=== PATIENT | female | born 1955 | race Caucasian/White ===

== ENCOUNTER 2018-12-25 08:49 | Emergency (ER) | payer MEDICARE, OTHER ==
[~2018-12-25] VITALS: Ht 152.4 cm; Wt 54.4 kg
[2018-12-25] MEDS ORDERED: fentaNYL PF VIAL 100 MCG/2 ML VIAL IV ONE (09:45)
--- NOTE | 2018-12-25 09:48 | PHYS DOC ---
Past Medical History Past Medical History: High Cholesterol, Hypertension, Hypothyroid Past Surgical History: Cholecystectomy, Hysterectomy Alcohol Use: None Drug Use: None Adult General Chief Complaint Chief Complaint: MECHANICAL FALL HPI HPI Patient is a 63 year old F who presents for fall down 3 steps. She says she hit the back of her head but did not lose consciousness. She has pain her back and right hip. Denies blood thinners. She has pmh of high cholesterol, high bp, and hypothyroid. Review of Systems Review of Systems Constitutional: Denies fever or chills Eyes: Denies change in visual acuity, redness, or eye pain HENT: Denies nasal congestion or sore throat Respiratory: Denies cough or shortness of breath Cardiovascular: No additional information not addressed in HPI GI: Denies abdominal pain, nausea, vomiting, bloody stools or diarrhea : Denies dysuria or hematuria Musculoskeletal: Denies back pain or joint pain Integument: Denies rash or skin lesions Neurologic: Denies headache, focal weakness or sensory changes All other systems were reviewed and found to be within normal limits, except as documented in this note. Current Medications Current Medications Current Medications Medications (Trade) Dose Ordered Sig/Dash Start Time Stop Time Status Last Admin Dose Admin Fentanyl Citrate (Fentanyl 2ml Vial) 50 mcg 1X ONCE 12/25/18 09:45 12/25/18 09:50 DC 12/25/18 09:51 50 MCG Morphine Sulfate (Morphine Ir) 15 mg 1X ONCE 12/25/18 11:30 12/25/18 11:31 DC 12/25/18 11:39 15 MG Ondansetron HCl (Zofran) 4 mg 1X ONCE 12/25/18 12:30 12/25/18 12:31 DC 12/25/18 12:09 4 MG Allergies Allergies Allergies Coded Allergies Type Severity Reaction Last Updated Verified No Known Drug Allergies 12/25/18 No Physical Exam Physical Exam Constitutional: Well developed, well nourished, no acute distress, non-toxic appearance. HENT: Normocephalic, atraumatic, bilateral external ears normal, oropharynx moist, no oral exudates, nose normal. Eyes: PERRLA, EOMI, conjunctiva normal, no discharge. Neck: Normal range of motion, no tenderness, supple, no stridor. Cardiovascular:Heart rate regular rhythm, no murmur Lungs & Thorax: Bilateral breath sounds clear to auscultation Abdomen: Bowel sounds normal, soft, no tenderness, no masses, no pulsatile masses. Skin: Warm, dry, no erythema, no rash. Back: No tenderness, no CVA tenderness. TTP bilat lumbar spine. Extremities: Tenderness R hip and pain with ROM, no cyanosis, no clubbing, ROM intact, no edema. 2+ radial and DP pulses. Neurologic: Alert and oriented X 3, normal motor function, normal sensory function, no focal deficits noted. Psychologic: Affect normal, judgement normal, mood normal. Current Patient Data Vital Signs Vital Signs Date Time Temp Pulse Resp B/P (MAP) Pulse Ox O2 Delivery O2 Flow Rate FiO2 12/25/18 11:36 68 15 97 12/25/18 08:59 97.8 137/70 (92) Room Air 97.8 EKG EKG [] Radiology/Procedures Radiology/Procedures [] Course & Med Decision Making Course & Med Decision Making Pertinent Labs and Imaging studies reviewed. (See chart for details) 63 y/o F presents for fall down stairs. CTs neg for acute fx. Xray neg for acute fx. Pt given fentanyl for pain. She is still feeling sore all over. Cervical spine with no midline tenderness or pain with ROM, C collar cleared per CT and exam. She is having better ROM of her bilat lower extremities after pain meds, she previously had pain with ROM at the hip. She is now able to move all extremities freely with adequate strength. All long bones palpated again and found to be nontender without deformity. Noted T3/T4 findings on CT, pt has no point tenderness in that area. She is otherwise neuro intact and well appearing. Ambulates with steady gait. Discussed all results and plan of care with pt who is agreeable with discharge. Encouraged her to start scheduled advil and will give pt PRN morphine for breakthrough pain. Dragon Disclaimer Dragon Disclaimer This electronic medical record was generated, in whole or in part, using a voice recognition dictation system. Departure Departure Impression: Primary Impression: Fall Disposition: 01 HOME, SELF-CARE Condition: IMPROVED Patient Instructions: Back Pain, Adult Scripts Ondansetron Hcl (ZOFRAN) 4 Mg Tablet 4 MG PO PRN TID PRN for NAUSEA, #15 nausea/vomiting Prov: ISHAN LANDERS MD 12/25/18 Morphine Sulfate (MORPHINE SULFATE) 15 Mg Tablet 1 TAB PO TID PRN for BREAKTHROUGH PAIN for 7 Days, #21 TAB 0 Refills Prov: ISHAN LANDERS MD 12/25/18 ISHAN LANDERS MD December 25, 2018 09:48
--- NOTE | 2018-12-25 10:04 | RAD ---
CT head and cervical spine without contrast History: Fall down steps with head and neck pain Technique: Noncontrast CT imaging was performed of the head and cervical spine. Multiplanar reconstruction images are submitted. Exposure: One or more of the following individualized dose reduction techniques were utilized for this examination: 1. Automated exposure control 2. Adjustment of the mA and/or kV according to patient size 3. Use of iterative reconstruction technique. Head CT Comparison: None Findings: No acute extra-axial or parenchymal hemorrhage is identified. There is no significant intra-axial mass effect, midline shift, or extra-axial fluid collection. The salazar-white differentiation of the major vascular territories is preserved. The ventricles, sulci, and cisterns are within normal limits in size and configuration. The mastoid air cells and the visualized paranasal sinuses are aerated. There is no significant focal calvarial abnormality. Impression: 1. No acute intracranial abnormality is identified. Cervical spine CT Comparison: None Findings: No acute cervical spine fracture is identified. Vertebral body stature and AP alignment are within normal limits. Atlanto-axial distance is within normal limits. There is appropriate alignment of lateral masses of C1 relative to C2. Occipital condylar-C1 relationship is maintained. There is moderate to severe degenerative disc disease C3-4 and C5-6 with mild spondylosis at these levels. There is uncovertebral degenerative change greatest on the left at C3-C4 and bilaterally at C5-C6. There is mild neural foramina compromise such as on the right at C5-C6 and on the left at C3-C4. Impression: 1. No acute cervical spine fracture is identified. 2. There is degenerative disc disease and spondylosis greatest C3-4 and C5-6. Electronically signed by: Addison Adler MD (12/25/2018 10:01 AM) [id number]
--- NOTE | 2018-12-25 10:11 | RAD ---
CT thoracic and lumbar spine without contrast Indication: Fall down 10 steps onto back with pain Technique: Noncontrast CT imaging was performed of the thoracic and lumbar spine, multiplanar reconstruction images submitted. One or more of the following individualized dose reduction techniques were utilized for this examination: 1. Automated exposure control 2. Adjustment of the mA and/or kV according to patient size 3. Use of iterative reconstruction technique. Comparison: None Thoracic spine: Findings: Thoracic vertebral body AP alignment is maintained. There is very mild superior endplate concavity of T4 and T3 without osseous retropulsion, otherwise difficult to characterize chronicity. Otherwise no acute thoracic spine fracture is identified. IMPRESSION: 1. There is very mild superior endplate concavity of T4 and T3 vertebral bodies without osseous retropulsion otherwise difficult to characterize chronicity, otherwise no acute thoracic spine fracture identified. Lumbar spine: FINDINGS: Lumbar vertebral body stature and AP alignment are maintained. There is moderate to severe degenerative disc disease with vacuum phenomenon L5-S1. No acute lumbar spine fracture is identified. There is multilevel lumbar facet degenerative change greater inferiorly. There is probable mild narrowing of the far left lateral recess L4-L5. There is very mild lumbar dextroscoliosis. IMPRESSION: 1. No acute lumbar spine fracture is identified. 2. There is degenerative disc disease at L5-S1. Electronically signed by: Addison Adler MD (12/25/2018 10:08 AM) [email or web address]
--- NOTE | 2018-12-25 10:42 | RAD ---
Single view pelvis and two-view right hip dated 12/25/2018. No comparison available. CLINICAL INDICATION: Pain after fall. FINDINGS: 3 views obtained. Bony alignment is anatomic. No displaced fracture. The pelvic ring is intact. Mild hypertrophic change of the bilateral SI joint and pubic symphysis. 2 views of right hip show normal bony alignment. No displaced fracture. No periostitis or bone destruction. Minimal hypertrophic change of the right hip joint. IMPRESSION: No acute radiographic abnormality. Electronically signed by: Darryl Black MD (12/25/2018 10:39 AM) [id number]
[2018-12-25] MEDS ORDERED: MORP15TA PO (11:23)
[2018-12-25] MEDS ORDERED: MORPHINE IR 15 MG TABLET PO ONE (11:30)
[2018-12-25 11:36] VITALS: BP 147/65
[2018-12-25] MEDS ORDERED: ONDA4TAB7 PO (12:05)
[2018-12-25] MEDS ORDERED: ONDANSETRON PF 4 MG/2 ML VIAL. IV ONE (12:30)
== END 2018-12-25 12:38 | disposition home or self-care (01) ==
LOC: ER 08:49
DX: S09.90XA Unspecified injury of head, initial encounter (principal); M54.5 Low back pain; M25.551 Pain in right hip; E78.00 Pure hypercholesterolemia, unspecified; I10 Essential (primary) hypertension; E03.9 Hypothyroidism, unspecified; Z90.710 Acquired absence of both cervix and uterus; Z90.49 Acquired absence of other specified parts of digestive tract; W10.9XXA Fall (on) (from) unspecified stairs and steps, initial encounter; Y93.89 Activity, other specified; Y92.89 Other specified places as the place of occurrence of the external cause; Y99.8 Other external cause status
CPT/HCPCS: 70450; 72125; 72128; 72131; 73502; 96374; 96375; 99284; J2405; J3010